=== PATIENT | male | born 1955 | race Caucasian/White ===

== ENCOUNTER → 2017-12-01 | Outpatient (CLI) | payer OTHER ==
--- NOTE | ~2017-12-01 | EXE ---
[facility] [employer] [place] [address] STRESS ECHOCARDIOGRAM Name: LATONYA OHARA Room #: REG Maykel#: [id number] Admission: 12/01/17 Attend Phys: Daniel Escamilla, Discharge: Date of : 59 Date of Service: 12/04/1714 Report #: [id number] THIS REPORT FOR: //name// APPROVED REPORT Study performed: 12/01/2017 10:28:09 Exam: Stress Echocardiogram Indication: Hypertension Patient Location: Out-Patient Stress Nurse: Lacey Rivers RN Room #: Echo lab 2 Status: routine Ht: 6 ft 3 in HR: 73 bpm BP: 158/98 mmHg Medical History Medical History: HTN Allergies: No known drug allergies Cardiac Risk Factors: HTN, Hyperlipidemia, FHX of CAD Exercise History: Physically active Procedure The patient underwent an Exercise Stress Test using the Frank Protocol. Blood pressure, heart rate, and EKG were monitored. An Echocardiogram was performed by fingerprint technician in four stages in quad fashion. At peak stress, four selected images were obtained and placed side by side with resting images for comparison. Stress Test Details Stress Test: Exercise stress testing was performed using a Frank protocol. HR Resting HR: 73 bpm Max Heart Rate (APMHR): 160 bpm Max HR Achieved: 144 bpm Target HR (85% APMHR): 136 bpm % of APMHR: 90 Recovery HR: 82 bpm HR response to stress: Normal HR response to stress BP Resting BP: 158/98 mmHg Max BP: 211/80 mmHg Recovery BP: 144/82 mmHg [facility] [address] [place] [address] STRESS ECHOCARDIOGRAM Name: LEVLATONYA Agosto Room #: [facility] AmberVinay#: [id number] Admission: 12/01/17 Attend Phys: Daniel Escamilla, Discharge: Date of : 59 Date of Service: 12/04/17913 Report #: [id number] ECG Clinical Reason for Termination: Maximal effort Exercise duration: 15 min 37 sec Highest Stage Achieved: Stage 6: 5.5 mph at 20% grade. Exercise capacity: 18.9 METs Overall Exercise Capacity for Age: Excellent Pre-Stress Echo The resting Echocardiogram showed normal left ventricular contractility with an estimated Ejection Fraction of about >55%. Post-Stress Echo The stress Echocardiogram showed normal left ventricular contractility with an estimated Ejection Fraction of about >70%. Clinical Normal augmentation of myocardial wall segments using a 17 segment model. Conclusion Clinical Response: Non-ischemic Exercise Capacity: Superior Stress ECG Response: Non-ischemic Stress Echo Images: Non-ischemic No prior study available for comparison. Other Information Study Quality: Good <ELECTRONICALLY SIGNED> By: Daniel Ecsamilla MD, [facility] 12/04/17913 3 3 Daniel Escamilla MD, FACC /INF
== END ==
LOC: ULTRA 09:24
DX: I10 Essential (primary) hypertension (principal); E78.00 Pure hypercholesterolemia, unspecified; R09.89 Other specified symptoms and signs involving the circulatory and respiratory systems; R93.1 Abnormal findings on diagnostic imaging of heart and coronary circulation; R06.02 Shortness of breath; Z82.49 Family history of ischemic heart disease and other diseases of the circulatory system

== ENCOUNTER → 2021-01-13 | Outpatient (CLI) | payer OTHER | LOC: SJCVCIMAG 07:56 | PROVIDERS: ATTEND Internal Medicine Cardiovascular Disease | DX: I49.1 Atrial premature depolarization (principal); I45.10 Unspecified right bundle-branch block; I10 Essential (primary) hypertension; R94.31 Abnormal electrocardiogram [ECG] [EKG]; R06.00 Dyspnea, unspecified; R53.83 Other fatigue ==